=== PATIENT | female | born 1935 | race Caucasian/White ===

== ENCOUNTER 2017-11-22 14:27 | Emergency (ER) | payer MEDICARE ==
[~2017-11-22] VITALS: Ht 149.9 cm; Wt 71.0 kg
[~2017-11-22 14:27] MED LIST: ASPI325T PO; IRON325T2 OR; LUMI0.01 EACH EYE; PROT40TA PO; TAB-TAB PO
[2017-11-22 14:31] VITALS: PULSE 109; RESP 20; TEMP 98.6; O2SAT 88
--- NOTE | 2017-11-22 14:53 | PD ---
HPI Chief Complaint: Edema Time Seen by Provider: 14:42 Travel History International Travel<30 days: No Contact w/Intl Traveler<30days: No Traveled to known affect area: No History of Present Illness HPI 82-year-old female presents with right lower extremity swelling and redness for the past day. She states in 2010 she had a blood clot to her other leg with similar symptoms. She denies any other concurrent complaints. Quality is swollen. Severity is progressive. Duration is one day. She denies specific modifying factors that she can recall. PFSH Past Medical History Arthritis: No Asthma: No Autoimmune Disease: No Anxiety: No Depression: No Heart Rhythm Problems: No Cancer: No Cardiovascular Problems: No High Cholesterol: No Chemotherapy: No Chest Pain: No Congestive Heart Failure: No COPD: No Cerebrovascular Accident: No Diabetes: No Diminished Hearing: No Endocrine: No GERD: No Genitourinary: No Hiatal Hernia: No Immune Disorder: No Kidney Stones: No Musculoskeletal: No Neurologic: No Psychiatric: No Reproductive: Yes (C SECTION) Respiratory: Yes (COPD) Immunizations Current: Yes (FLU SHOT-2006) Migraines: No Radiation Therapy: No Renal Failure: No Seizures: No Sickle Cell Disease: No Sleep Apnea: No Thyroid Disease: No Ulcer: No Tubal Ligation: Yes Past Surgical History Abdominal Surgery: No AICD: No Arteriovenous Shunt: No Ear Surgery: No Endocrine Surgery: No Eye Surgery: No Gynecologic Surgery: Yes (C SECTION, TUBAL) Insulin Pump: No Joint Replacement: No Oral Surgery: No Pacemaker: No Social History Alcohol Use: No Tobacco Use: No Substance Use: No Allergies-Medications (Allergen,Severity, Reaction): Coded Allergies: No Known Allergies (Verified Adverse Reaction, Unknown, 11/22/17) Reported Meds & Prescriptions Reported Meds & Active Scripts Active Clindamycin (Clindamycin HCl) 300 Mg Cap 300 Mg PO TID 7 Days Reported Symbicort Inh (Budesonide/Formoterol Fumarate) 80-4.5 Mcg/Act Aero 2 Puff INH Q12HR Vitamin C (Ascorbic Acid) 250 Mg Tab 250 Mg PO [iron supplement] Aspirin 325 Mg Tab 325 Mg PO DAILY Review of Systems Except as stated in HPI: all other systems reviewed are Neg Physical Exam Narrative GENERAL: Well-nourished, well-developed patient. SKIN: Warm and dry. Small amount of redness noted to right posterior lower calf , no crepitus or abscess HEAD: Normocephalic and atraumatic. EYES: No injection or drainage. ENT: No nasal drainage noted. NECK: Supple, trachea midline. CARDIOVASCULAR: Regular rate and rhythm RESPIRATORY: No increased effort. No accessory muscle use. EXTREMITIES: Edema noted to right lower extremity from knee to foot with calf pain, neurovascularly intact, compartments soft, no lacerations NEUROLOGICAL: Awake and alert. Moves all extremities and sensory grossly within normal limits. Normal speech. Data Data Last Documented VS Vital Signs Date Time Temp Pulse Resp B/P (MAP) Pulse Ox O2 Delivery O2 Flow Rate FiO2 11/22/17 17:42 11/22/17 16:00 88 20 95 11/22/17 14:31 98.6 Orders Orders Us Leg Venous Doppler (11/22/17 14:46) Complete Blood Count With Diff (11/22/17 14:46) Basic Metabolic Panel (Bmp) (11/22/17 14:46) Act Partial Throm Time (Ptt) (11/22/17 14:46) Prothrombin Time / Inr (Pt) (11/22/17 14:46) Iv Access Insert/Monitor (11/22/17 14:46) Ct Pulmonary Angiogram (11/22/17 ) Albuterol-Ipratropium Neb (Duoneb Neb) (11/22/17 16:00) Chest, Single Ap (11/22/17 ) Iohexol 350 Inj (Omnipaque 350 Inj) (11/22/17 16:41) Ed Discharge Order (11/22/17 17:34) Labs Laboratory Tests Test 11/22/17 15:00 White Blood Count 12.4 TH/MM3 Red Blood Count 4.58 MIL/MM3 Hemoglobin 13.8 GM/DL Hematocrit 43.4 % Mean Corpuscular Volume 94.7 FL Mean Corpuscular Hemoglobin 30.0 PG Mean Corpuscular Hemoglobin Concent 31.7 % Red Cell Distribution Width 14.2 % Platelet Count 186 TH/MM3 Mean Platelet Volume 8.4 FL Neutrophils (%) (Auto) 85.7 % Lymphocytes (%) (Auto) 5.8 % Monocytes (%) (Auto) 6.5 % Eosinophils (%) (Auto) 0.1 % Basophils (%) (Auto) 1.9 % Neutrophils # (Auto) 10.7 TH/MM3 Lymphocytes # (Auto) 0.7 TH/MM3 Monocytes # (Auto) 0.8 TH/MM3 Eosinophils # (Auto) 0.0 TH/MM3 Basophils # (Auto) 0.2 TH/MM3 CBC Comment DIFF FINAL Differential Comment Prothrombin Time 12.1 SEC Prothromb Time International Ratio 1.2 RATIO Activated Partial Thromboplast Time 27.6 SEC Blood Urea Nitrogen 14 MG/DL Creatinine 0.86 MG/DL Random Glucose 86 MG/DL Calcium Level 8.6 MG/DL Sodium Level 138 MEQ/L Potassium Level 3.8 MEQ/L Chloride Level 106 MEQ/L Carbon Dioxide Level 23.3 MEQ/L Anion Gap 9 MEQ/L Estimat Glomerular Filtration Rate 63 ML/MIN MDM Medical Decision Making Medical Screen Exam Complete: Yes Emergency Medical Condition: Yes Medical Record Reviewed: Yes (past history confirmed) Interpretation(s) CBC & BMP Diagram 11/22/17 15:00 Calcium Level 8.6 doppler rle no dvt Last 24 hours Impressions Lower Extremity Ultrasound 11/22/17 1446 Signed Impressions: Service Date/Time: Wednesday, November 22, 2017 15:15 - CONCLUSION: 1. No sonographic evidence for right lower extremity DVT. Deshawn Colon MD Chest X-Ray 11/22/17 0000 Signed Impressions: Service Date/Time: Wednesday, November 22, 2017 16:22 - CONCLUSION: 1. Prominent cardiomegaly. 2. Probable moderate size hiatal hernia. Deshawn Colon MD CT Angiography 11/22/17 0000 Signed Impressions: Service Date/Time: Wednesday, November 22, 2017 16:30 - CONCLUSION: 1. Negative for pulmonary emboli 2. Large heart hernia 3. Compensated cardiomegaly trace pericardial effusion. Casper Romero MD FACR Differential Diagnosis DVT, venous stasis, cellulitis Narrative Course Will check blood work and ultrasound and reevaluate Patient with low pulse ox noted on triage vitals. Patient has thick gel pakistani noted. Ear pulse ox with good waveform is 91%. Patient is a COPD patient. Patient does have mild tachycardia in triage. Given history of DVT will check CT chest to rule out PE and give DuoNeb while awaiting testing CT without PE, patient does have incidental hiatal hernia, Ultrasound is negative, patient has mild white count and what appears to be the beginnings of cellulitis to her right lower leg. We'll start on antibiotics for this. Pulse ox reading has improved after DuoNeb treatment and with pulse ox reading on ear , will discuss with her primary for close follow-up, patient in agreement to discharge and given return instructions Physician Communication Physician Communication dr park states will see in office saturday Diagnosis Primary Impression: Cellulitis of right leg Additional Impression: Leg swelling Patient Instructions: General Instructions Additional Instructions: return as needed, follow with primary saturday, elevate leg at rest Med/Other Pt SpecificInfo: Prescription(s) given Scripts Clindamycin (Clindamycin) 300 Mg Cap 300 MG PO TID for Infection for 7 Days, #21 CAP 0 Refills Prov: Marylu Muller MD 11/22/17 Disposition: 01 DISCHARGE HOME Condition: Stable Marylu Mullre MD Nov 22, 2017 14:53
[2017-11-22] MEDS ORDERED: iron supplement (14:55)
[2017-11-22] MEDS ORDERED: ASPI-183 PO (14:55)
[2017-11-22] MEDS ORDERED: VITA250T3 PO (14:55)
[2017-11-22] MEDS ORDERED: SYMB80AE INH (14:55)
[2017-11-22 15:06] LABS: AUTOMATED NEUTROPHIL # 10.7 TH/MM3 (1.8-7.7); BASOPHIL # 0.2 TH/MM3 (0-0.2); BASOPHIL % 1.9 % (0.0-2.0); EOSINOPHIL % 0.1 % (0.0-4.0); HEMATOCRIT 43.4 % (35.0-46.0); HEMOGLOBIN 13.8 GM/DL (11.6-15.3); LYMPH % 5.8 % (9.0-44.0); LYMPHOCYTE # 0.7 TH/MM3 (1.0-4.8); MEAN CELL VOLUME 94.7 FL (80.0-100.0); MEAN CORPUSCULAR HGB CONC 31.7 % (32.0-36.0); MEAN PLATELET VOLUME 8.4 FL (7.0-11.0); MONO % 6.5 % (0.0-8.0); MONOCYTE # 0.8 TH/MM3 (0-0.9); NEUT % 85.7 % (16.0-70.0); PLATELET COUNT 186 TH/MM3 (150-450); RED BLOOD COUNT 4.58 MIL/MM3 (4.00-5.30); RED CELL DISTRIBUTION WIDTH 14.2 % (11.6-17.2); WHITE BLOOD COUNT 12.4 TH/MM3 (4.0-11.0)
[2017-11-22 15:17] LABS: BICARBONATE 23.3 MEQ/L (21.0-32.0); CALCIUM 8.6 MG/DL (8.5-10.1)
[2017-11-22 15:19] LABS: INTERNATIONAL NORMALIZED RATIO 1.2 RATIO; PROTHROMBIN TIME - PATIENT 12.1 SEC (9.8-11.6)
[2017-11-22 15:21] LABS: CREATININE 0.86 MG/DL (0.50-1.00)
--- NOTE | 2017-11-22 15:42 | RADRPT ---
EXAM DATE/TIME: 11/22/2017 15:15 [facility] COMPARISON: No previous studies available for comparison. EXTERNAL COMPARISON : [facility], US LEG, LEFT VENOUS DOPPLER November 22, 2011. INDICATIONS : Right leg swelling. MEDICAL HISTORY : Chronic obstructive pulmonary disease. Syncope. SURGICAL HISTORY : Tubal ligation. section. ENCOUNTER: Initial ACUITY: 1 day PAIN SCORE: 2/10 LOCATION: Right leg. TECHNIQUE: Venous ultrasound of the leg was performed from the inguinal ligament to the proximal calf. Real-teddy e, color Doppler and spectral tracing, compression and augmentation techniques were used. FINDINGS: There is normal compressibility of the deep venous system from the inguinal region to the proximal ca lf. No echogenic clot is seen in the lumen of the common femoral, femoral, popliteal, and posterior tibial veins. There is a normal response of the venous system to proximal and distal augmentation an d respiration. CONCLUSION: 1. No sonographic evidence for right lower extremity DVT. Deshawn Colon MD on November 22, 2017 at 15:40 Board Certified Radiologist. This report was verified electronically.
[2017-11-22] MEDS ORDERED: CLIN300C5 PO (15:50)
[2017-11-22 16:00] VITALS: BP 102/67; PULSE 88; RESP 20; O2SAT 95
[2017-11-22] MEDS ORDERED: RESP: ALBUTEROL 2.5 MG/IPRATROPIUM 0.5 MG NEB (SCH) NEB ONE (16:00)
--- NOTE | 2017-11-22 16:31 | RADRPT ---
EXAM DATE/TIME: 11/22/2017 16:22 [facility] COMPARISON: No previous studies available for comparison. INDICATIONS : Palpitations. MEDICAL HISTORY : Chronic obstructive pulmonary disease. Syncope. SURGICAL HISTORY : Tubal ligation. section. ENCOUNTER: Initial ACUITY: 1 day PAIN SCORE: 6/10 LOCATION: Bilateral chest FINDINGS: A single view of the chest demonstrates the lungs to be symmetrically aerated without evidence of mas s, infiltrate or effusion. Enlarged cardiac silhouette. Retrocardiac opacity likely reflects a hiatal hernia. Bony thorax is intact. CONCLUSION: 1. Prominent cardiomegaly. 2. Probable moderate size hiatal hernia. Deshawn Colon MD on November 22, 2017 at 16:27 Board Certified Radiologist. This report was verified electronically.
[2017-11-22] MEDS ORDERED: IOHEXOL 350 MG/ML 10 ML VIAL (for RAD DIAG) IVCONTRAST ONE (16:41)
--- NOTE | 2017-11-22 16:53 | RADRPT ---
EXAM DATE/TIME: 11/22/2017 16:30 [place] Corrected on: November 22, 2017; [facility] COMPARISON: No previous studies available for comparison. INDICATIONS : Right lower extremity swelling and redness x 1 day. Evaluate for embolism. IV CONTRAST: 75 cc Omnipaque 350 (iohexol) IV RADIATION DOSE: 9.44 CTDIvol (mGy) MEDICAL HISTORY : Deep venous thrombosis. Chronic obstructive pulmonary disease. SURGICAL HISTORY : Tubal ligation. section. ENCOUNTER: Initial ACUITY: 1 day PAIN SCALE: 0/10 LOCATION: chest TECHNIQUE: Volumetric scanning of the chest was performed using a pulmonary embolism protocol MIP images were re constructed. Using automated exposure control and adjustment of the mA and/or kV according to patien t size, radiation dose was kept as low as reasonably achievable to obtain optimal diagnostic quality images. DICOM format image data is available electronically for review and comparison. Follow-up recommendations for detected pulmonary nodules are based at a minimum on nodule size and pa tient risk factors according to Fleischner Society Guidelines. FINDINGS: PULMONARY ARTERIES: No filling defects are seen in the pulmonary arteries through the segmental level. LUNGS: Minimal patchy airspace disease in the right lung predominantly the right base without consolidation. Minimal hilar adenopathy. PLEURAE: There is no pleural thickening or pleural effusion. MEDIASTINUM: Compensated cardiomegaly ` Trace pericardial effusion Large hilar hernia. MUSCULOSKELETAL: Within normal limits for patient age. MISCELLANEOUS: Liver cyst measuring less than 2 cm. CONCLUSION: 1. Negative for pulmonary emboli 2. Large heart hernia 3. Compensated cardiomegaly trace pericardial effusion. Casper Romero MD FACR on November 22, 2017 at 16:49 Board Certified Radiologist. This report was verified electronically. Casper Romero MD FACR on November 22, 2017 at 16:57 Board Certified Radiologist. This report was verified electronically.
== END 2017-11-22 17:53 | disposition home or self-care (01) ==
LOC: PHED 14:27
DX: L03.113 Cellulitis of right upper limb (principal); R00.0 Tachycardia, unspecified; J44.9 Chronic obstructive pulmonary disease, unspecified; I51.7 Cardiomegaly; Z79.899 Other long term (current) drug therapy
CPT/HCPCS: 71010; 71275; 80048; 85025; 85610; 85730; 93971; 94664; 99285; Q9967